=== PATIENT | male | born 1970 | race African-American/Black ===

== ENCOUNTER 2016-11-08 09:34 | Inpatient (IN) | payer BC ==
[~2016-11-08] VITALS: Ht 188 cm; Wt 105.2 kg
[2016-11-08] MEDS ORDERED: IV NORMAL SALINE 1000ML BAG 1,000 ML IV SCH (09:39)
--- NOTE | 2016-11-08 09:50 | PHYS DOC ---
Adult General Chief Complaint Chief Complaint: SYNCOPE HPI HPI Patient is a 45 year old -[place]olan Ang[place] male who presents with syncopal episode. 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 He states he's been working itself externally hard and when he left because he felt lightheaded and had some shortness of breath the next thing he knew he was picking himself off the floor. He currently denies any fevers chills nausea vomiting or shortness of breath. He does complain about left elbow and knee pain. He does smoke cigarettes and has no other past medical history. Review of Systems Review of Systems Constitutional: Denies fever or chills [] Eyes: Denies change in visual acuity, redness, or eye pain [] HENT: Denies nasal congestion or sore throat [] Respiratory: Denies cough or shortness of breath [] Cardiovascular: No additional information not addressed in HPI [] GI: Denies abdominal pain, nausea, vomiting, bloody stools or diarrhea [] : Denies dysuria or hematuria [] Musculoskeletal: Positive for left knee and left elbow pain Integument: Denies rash or skin lesions [] Neurologic: Denies headache, focal weakness or sensory changes [] Endocrine: Denies polyuria or polydipsia [] Current Medications Current Medications Current Medications Medications (Trade) Dose Ordered Sig/Nadeem Start Time Stop Time Status Last Admin Dose Admin Info (Do NOT chart on this entry -- for MONITORING) 1 each PRN DAILY PRN 11/08/16 11:00 11/10/16 10:59 Iohexol (Omnipaque 300 Mg/ml) 75 ml 1X ONCE 11/08/16 11:00 11/08/16 11:01 DC 11/08/16 11:06 75 ML Morphine Sulfate 4 mg 1X ONCE 11/08/16 11:00 11/08/16 11:01 DC 11/08/16 11:15 4 MG Sodium Chloride 1,000 ml @ 1,000 mls/hr Q1H 11/08/16 09:39 11/08/16 10:38 DC 11/08/16 10:14 1,000 MLS/HR Allergies Allergies Allergies Coded Allergies Type Severity Reaction Last Updated Verified No Known Drug Allergies 11/08/16 No Physical Exam Physical Exam Constitutional: Well developed, well nourished, no acute distress, non-toxic appearance. [] HENT: Normocephalic, atraumatic, bilateral external ears normal, oropharynx moist, no oral exudates, nose normal. [] Eyes: PERRLA, EOMI, conjunctiva normal, no discharge. [] Neck: Normal range of motion, no tenderness, supple, no stridor. [] Cardiovascular:Heart rate regular rhythm, no murmur [] Lungs & Thorax: Bilateral breath sounds clear to auscultation [] Abdomen: Bowel sounds normal, soft, no tenderness, no masses, no pulsatile masses. [] Skin: Warm, dry, no erythema, no rash. [] Back: No tenderness, no CVA tenderness. [] Extremities: Mild tenderness palpation of the left knee and left elbow, no obvious deformities noted, range of motion intact, no cyanosis, no clubbing, ROM intact, no edema. [] Neurologic: Alert and oriented X 3, normal motor function, normal sensory function, no focal deficits noted. [] Psychologic: Affect normal, judgement normal, mood normal. [] Current Patient Data Vital Signs Vital Signs Date Time Temp Pulse Resp B/P (MAP) Pulse Ox O2 Delivery O2 Flow Rate FiO2 11/08/16 11:15 16 100 Room Air 11/08/16 09:35 98.3 60 158/96 (116) 98.3 Lab Values Laboratory Tests Test 11/08/16 09:45 11/08/16 10:36 White Blood Count 2.9 x10^3/uL (4.0-11.0) L Red Blood Count 4.52 x10^6/uL (4.30-5.70) Hemoglobin 13.8 g/dL (13.0-17.5) Hematocrit 40.0 % (39.0-53.0) Mean Corpuscular Volume 88 fL (79-100) Mean Corpuscular Hemoglobin 31 pg (25-35) Mean Corpuscular Hemoglobin Concent 35 g/dL (31-37) Red Cell Distribution Width 13.8 % (11.5-14.5) Platelet Count 170 x10^3/uL (140-400) Neutrophils (%) (Auto) 42 % (31-73) Lymphocytes (%) (Auto) 43 % (24-48) Monocytes (%) (Auto) 10 % (0-9) H Eosinophils (%) (Auto) 5 % (0-3) H Basophils (%) (Auto) 1 % (0-3) Neutrophils # (Auto) 1.2 x10^3uL (1.8-7.7) L Lymphocytes # (Auto) 1.2 x10^3/uL (1.0-4.8) Monocytes # (Auto) 0.3 x10^3/uL (0.0-1.1) Eosinophils # (Auto) 0.1 x10^3/uL (0.0-0.7) Basophils # (Auto) 0.0 x10^3/uL (0.0-0.2) Prothrombin Time 12.5 SEC (11.7-14.0) Prothrombin Time INR 1.0 (0.8-1.1) D-Dimer (Yoko) 0.61 ug/mlFEU (0.00-0.50) H Sodium Level 140 mmol/L (136-145) Potassium Level 4.0 mmol/L (3.5-5.1) Chloride Level 107 mmol/L (98-107) Carbon Dioxide Level 27 mmol/L (21-32) Anion Gap 6 (6-14) Blood Urea Nitrogen 11 mg/dL (8-26) Creatinine 1.0 mg/dL (0.7-1.3) Estimated GFR (Cockcroft-Gault) 80.8 Glucose Level 98 mg/dL (70-99) Calcium Level 9.3 mg/dL (8.5-10.1) Magnesium Level 2.1 mg/dL (1.8-2.4) Total Bilirubin 0.4 mg/dL (0.2-1.0) Direct Bilirubin 0.1 mg/dL (0.0-0.2) Aspartate Amino Transferase (AST) 24 U/L (15-37) Alanine Aminotransferase (ALT) 34 U/L (16-63) Alkaline Phosphatase 77 U/L (46-116) Creatine Kinase 703 U/L (39-308) H Creatine Kinase MB (Mass) 1.9 ng/mL (0.0-3.6) Creatine Kinase MB Relative Index 0.3 % (0-4) Troponin I Quantitative < 0.017 ng/mL (0.000-0.055) [id number]-[id number]-Type Natriuretic Peptide 108 pg/mL (0-124) Total Protein 7.7 g/dL (6.4-8.2) Albumin 3.9 g/dL (3.4-5.0) Lipase 100 U/L (73-393) Thyroid Stimulating Hormone (TSH) 0.596 uIU/mL (0.358-3.74) Urine Collection Type Unknown Urine Color Yellow Urine Clarity Clear Urine pH 7.5 Urine Specific [place] 1.015 Urine Protein Negative mg/dL (NEG-TRACE) Urine Glucose (UA) Negative mg/dL (NEG) Urine Ketones (Stick) Negative mg/dL (NEG) Urine Blood Negative (NEG) Urine Nitrite Negative (NEG) Urine Bilirubin Negative (NEG) Urine Urobilinogen Dipstick 1.0 mg/dL (0.2 mg/dL) Urine Leukocyte Esterase Negative (NEG) Urine RBC 0 /HPF (0-2) Urine WBC 0 /HPF (0-4) Urine Squamous Epithelial Cells Occ /LPF Urine Bacteria 0 /HPF (0-FEW) Urine Opiates Screen Neg (NEG) Urine Methadone Screen Neg (NEG) Urine Barbiturates Neg (NEG) Urine Phencyclidine Screen Neg (NEG) Urine Amphetamine/Methamphetamine Neg (NEG) Urine Benzodiazepines Screen Neg (NEG) Urine Cocaine Screen Neg (NEG) Urine Cannabinoids Screen Neg (NEG) Urine Ethyl Alcohol Neg (NEG) Laboratory Tests 11/08/16 09:45 Laboratory Tests 11/08/16 09:45 EKG EKG EKG shows sinus rhythm with rate of [address] elevations, T-wave inversion noted in lead 3, normal axis, QTC 4 and 23 ms, as interpreted by me. Radiology/Procedures Radiology/Procedures [facility] [address] [place] [address] IMAGING REPORT Signed PATIENT: ADRIEN DE LOS SANTOS ACCOUNT: [id number] : 1970 LOCATION: ER AGE: 45 SEX: M EXAM STATUS: PRE ER ORD. PHYSICIAN: MARGARET HOWELL MD REASON: syncope with fall, pain to left elbow and knee PROCEDURE: KNEE LEFT 4V Indication: Syncope and left knee injury. Time of exam 10 0 4:00 AM 4 views of the left knee demonstrate medial and patellofemoral compartmental degenerative change with joint space narrowing and marginal spurring. No fractures are identified. There is no joint effusion. Impression: Degenerative changes. No acute bony abnormality is detected. DICTATED and SIGNED BY: JUHI CARRENO MD DATE: 11/08/16 1010 CC: MARGARET HOWELL MD ~ [address] [address] IMAGING REPORT Signed PATIENT: ADRIEN DE LOS SANTOS ACCOUNT: [id number] : 1970 LOCATION: ER AGE: 45 SEX: M EXAM STATUS: PRE ER ORD. PHYSICIAN: MARGARET HOWELL MD REASON: syncope with fall, pain to left elbow and knee PROCEDURE: ELBOW LEFT 3V Indication: Syncope and left elbow injury and pain. Time of exam 10:04 AM 3 views of the left elbow were obtained. The alignment is normal. No fracture, dislocation or effusion is detected. Impression: No acute bony abnormality is detected. DICTATED and SIGNED BY: JUHI CARRENO MD DATE: 11/08/16 1011 CC: MARGARET HOWELL MD ~ [id number] [place], [place] [id number] IMAGING REPORT Signed PATIENT: ADRIEN DE LOS SANTOS ACCOUNT: [id number] : 1970 LOCATION: ER AGE: 45 SEX: M EXAM STATUS: PRE ER ORD. PHYSICIAN: MARGARET HOWELL MD REASON: syncope with fall, pain to left elbow and knee PROCEDURE: PORTABLE CHEST 1V Indication: Syncope. Time of exam 10:05 AM FINDINGS: The heart size is normal. The lungs are clear. No pleural effusion or pneumothorax is identified. The pulmonary vascularity is normal. IMPRESSION: No acute abnormality detected. DICTATED and SIGNED BY: JUHI CARRENO MD DATE: 11/08/16 1012 CC: MARGARET HOWELL MD ~ [id number] [place] [address] IMAGING REPORT Signed PATIENT: ADRIEN DE LOS SANTOS ACCOUNT: [id number] : 1970 LOCATION: ER AGE: 45 SEX: M EXAM STATUS: REG ER ORD. PHYSICIAN: MARGARET HOWELL MD REASON: syncope PROCEDURE: CT ANGIOGRAPHY CHEST Indication: Syncope and shortness of air. Axial imaging through the chest was performed after the administration of intravenous contrast and utilizing the CT angiography protocol. Multiplanar, 3-D and MIP reformations were also performed. Evaluation of the pulmonary arterial system is without evidence of thromboembolism. No filling defects are identified. The aorta is normal caliber. No pericardial or pleural fluid is identified. No pulmonary infiltrates, nodules or masses are seen. Upper abdomen demonstrates several low densities within the liver, too small to characterize but likely cysts. Impression: No evidence of pulmonary embolism. PQRS Compliance Statement: One or more of the following individualized dose reduction techniques were utilized for this examination: 1. Automated exposure control 2. Adjustment of the mA and/or kV according to patient size 3. Use of iterative reconstruction technique DICTATED and SIGNED BY: JUHI CARRENO MD DATE: 11/08/16 1122 CC: MARGARET HOWELL MD; JAQUAN RUTLEDGE DO ~ Impressions: Syncopal episode Bradycardia Left knee pain Course & Med Decision Making Course & Med Decision Making Pertinent Labs and Imaging studies reviewed. (See chart for details) Labs show elevated d-dimer with CT Angio is negative. He is bradycardic and this could be the reason for his symptoms. We'll admit with cardiology consultation. Interim orders have been written. Did speak with Dr. corral regarding his labs, physical exam and findings. Dragon Disclaimer Dragon Disclaimer This electronic medical record was generated, in whole or in part, using a voice recognition dictation system. Departure Departure Impression: Primary Impression: Syncope Disposition: ADMITTED INPATIENT Admitting Physician: Joan Corral Condition: STABLE Problem Qualifiers Primary Impression: Syncope Encounter type: initial encounter MARGARET HOWELL MD Nov 08, 2016 09:50
--- NOTE | 2016-11-08 10:13 | RAD ---
Indication: Syncope and left knee injury. Time of exam 10 0 4:00 AM 4 views of the left knee demonstrate medial and patellofemoral compartmental degenerative change with joint space narrowing and marginal spurring. No fractures are identified. There is no joint effusion. Impression: Degenerative changes. No acute bony abnormality is detected.
--- NOTE | 2016-11-08 10:14 | RAD ---
Indication: Syncope and left elbow injury and pain. Time of exam 10:04 AM 3 views of the left elbow were obtained. The alignment is normal. No fracture, dislocation or effusion is detected. Impression: No acute bony abnormality is detected.
--- NOTE | 2016-11-08 10:14 | RAD ---
Indication: Syncope. Time of exam 10:05 AM FINDINGS: The heart size is normal. The lungs are clear. No pleural effusion or pneumothorax is identified. The pulmonary vascularity is normal. IMPRESSION: No acute abnormality detected.
[2016-11-08 10:19] LABS: CALCIUM 9.3 mg/dL (8.5-10.1); GFR 80.8
[2016-11-08 10:27] LABS: ALBUMIN 3.9 g/dL (3.4-5.0); BASO % 1 % (0-3); DIRECT BILIRUBIN 0.1 mg/dL (0.0-0.2); EOS % 5 % (0-3); HEMOGLOBIN 13.8 g/dL (13.0-17.5); LYMPH # 1.2 x10^3/uL (1.0-4.8); LYMPH % 43 % (24-48); MAGNESIUM 2.1 mg/dL (1.8-2.4); MEAN CORPUSCULAR HEMOGLOBIN 31 pg (25-35); MEAN CORPUSCULAR HGB CONC 35 g/dL (31-37); MEAN CORPUSCULAR VOLUME 88 fL (79-100); MONO % 10 % (0-9); NEUT % 42 % (31-73); PLATELET COUNT 170 x10^3/uL (140-400); RED BLOOD COUNT 4.52 x10^6/uL (4.30-5.70); RED CELL DISTRIBUTION WIDTH 13.8 % (11.5-14.5); TOTAL BILIRUBIN 0.4 mg/dL (0.2-1.0); TOTAL PROTEIN 7.7 g/dL (6.4-8.2); WHITE BLOOD COUNT 2.9 x10^3/uL (4.0-11.0)
[2016-11-08 10:32] LABS: PROTHROMBIN TIME PATIENT 12.5 SEC (11.7-14.0)
[2016-11-08 10:35] LABS: CKMB MASS 1.9 ng/mL (0.0-3.6)
--- NOTE | 2016-11-08 10:46 | ACF ---
Admission Forms Criteria SYNCOPE Clinical Indications for Admission to Inpatient Care ( Place 'X' for any and all applicable criteria): Admission is indicated for syncope and ANY ONE of the following (1)(2)(3)(4)(5) (6)(7) : [X]I. Inpatient admission required rather than observation care (Also use Syncope: Observation Care Criteria as appropriate) because of ANY ONE of the following: [ ]a) Hemodynamic instability that is severe or persistent [ ]b) Cardiac arrhythmias of immediate concern identified or strongly suspected (eg, needs electrophysiologic study) [ ]c) Acute coronary syndrome identified (Also use Myocardial Infarction or Angina Criteria form ) [ ]d) Structural cardiac disorder (eg, aortic stenosis) suspected as cause that requires immediate correction [ ]e) Respiratory symptoms (eg, dyspnea, tachypnea) that are severe or persistent [ ]f) Neurologic signs or symptoms that are severe or persistent ( eg, stroke, seizures, altered mental status) [ ]g) Severe electrolyte abnormalities requiring inpatient care [ ]h) Supplemental oxygen or respiratory treatment for over 24 hrs that are performable only in acute inpatient setting [ ]i) IV fluid to replace significant ongoing (eg, for over 24 hrs ) losses (>3 L/m2 per day) [ ]j) Continuous intravenous infusion of anticoagulation, platelet inhibitor, vasoactive, or antiarrhythmic medication(15)(16) [ ]k) Pulmonary artery catheter monitoring [ ]l) Temporary pacemaker placement(17) [ ]m) Emergent cardioversion(18) [X]n) Other conditions, treatment or monitoring requiring inpatient admission [ ]II. Suspicion of imminently dangerous cause (eg, rare causes like pericardial tamponade, pulmonary embolism) [ ]III. Syncope causing severe injury requiring hospitalization Extended stay beyond goal length of stay may be needed for(28) [ ]a) Dangerous arrhythmia(15)(23)(27)(29) [ ]b) Myocardial ischemia [ ]c) Seizure disorder [ ]d) Syncope-related injuries The original [employer] content created by [employer] has been revised. The portions of the content which have been revised are identified through the use of italic text or in bold, and [facility] [employer] has neither reviewed nor approved the modified material. All other unmodified content is copyright [employer]. Please see references footnoted in the original [facility] edition 2016 Admission Criteria Met?: Yes LEA CHAVEZ. Nov 08, 2016 10:46
[2016-11-08 10:50] LABS: BILIRUBIN,URINE NEGATIVE (NEG); GLUCOSE,URINE NEGATIVE (NEG); NITRITE,URINE NEGATIVE (NEG); PH,URINE 7.5; PROTEIN,URINE NEGATIVE (NEG-TRACE)
[2016-11-08 10:52] LABS: BARBITURATES NEG (NEG); BENZODIAZEPINES NEG (NEG); CANNABINOIDS NEG (NEG); COCAINE NEG (NEG); METHADONE NEG (NEG); OPIATES NEG (NEG); PHENCYCLIDINE NEG (NEG)
[2016-11-08] MEDS ORDERED: MORPHINE SULFATE 4 MG/ML DISP.SYRIN. IV ONE (11:00)
[2016-11-08] MEDS ORDERED: IOHEXOL 300 MG/ML 75 ML VIAL IV ONE (11:00)
[2016-11-08] MEDS ORDERED: CONTRAST GIVEN MC PRN (11:00)
--- NOTE | 2016-11-08 11:02 | EKG ---
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 Electronically Signed On 11-08-2016 23:12:58 CDT by Yunior Sanchez
--- NOTE | 2016-11-08 11:27 | RAD ---
Indication: Syncope and shortness of air. Axial imaging through the chest was performed after the administration of intravenous contrast and utilizing the CT angiography protocol. Multiplanar, 3-D and MIP reformations were also performed. Evaluation of the pulmonary arterial system is without evidence of thromboembolism. No filling defects are identified. The aorta is normal caliber. No pericardial or pleural fluid is identified. No pulmonary infiltrates, nodules or masses are seen. Upper abdomen demonstrates several low densities within the liver, too small to characterize but likely cysts. Impression: No evidence of pulmonary embolism. PQRS Compliance Statement: One or more of the following individualized dose reduction techniques were utilized for this examination: 1. Automated exposure control 2. Adjustment of the mA and/or kV according to patient size 3. Use of iterative reconstruction technique
[2016-11-08 11:33] LABS: BACTERIA,URINE 0 /HPF (0-FEW); RBC,URINE 0 /HPF (0-2); SQUAMOUS EPITHELIAL CELL,UR OCC /LPF; WBC,URINE 0 /HPF (0-4)
[2016-11-08] MEDS ORDERED: MORPHINE SULFATE 2 MG/ML DISP.SYRIN. IV PRN (11:45)
[2016-11-08] MEDS ORDERED: ONDANSETRON PF 4 MG/2 ML VIAL. IV PRN (11:45)
--- NOTE | 2016-11-08 12:07 | PDOC2 ---
CARDIAC CONSULT DATE OF CONSULT Date of Consult DATE: 11/08/16 TIME: 12:03 REASON FOR CONSULT Reason for Consult: syncope REFERRING PHYSICIAN Referring Physician: Dr. Arroyo SOURCE Source: Chart review, Patient HISTORY OF PRESENT ILLNESS HISTORY OF PRESENT ILLNESS This is a 45 yo male who presented secondary to a syncopal episode. Patient reports he was at work this morning when episode occurred. 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 Was walking to get supplies, suddenly felt tired and lightheaded. Next thing he knew he was on the floor. Landed on left knee and elbow. [place]y slightly SOA when he "came to." Denies any chest pain, palpitations, or diaphoresis. No prior history of heart disease or cardiac workup. EKG shows SB rate 53 with t-wave inversion of septal leads. Initial trop negative. D-dimer mildly elevated; CTA chest negative for PE. PAST MEDICAL HISTORY Cardiovascular: Hyperlipidemia Pulmonary: No pertinent hx GI: No pertinent hx Heme/Onc: No pertinent hx Hepatobiliary: No pertinent hx Psych: No pertinent hx Rheumatologic: No pertinent hx Infectious disease: No pertinent hx ENT: No pertinent hx Renal/: No pertinent hx Endocrine: No pertinent hx Dermatology: No pertinent hx PAST SURGICAL HISTORY Past Surgical History: Other (left knee sx) FAMILY HISTORY Family History: Coronary Artery Disease (father at age 56), Diabetes (mother ) , Hypertension SOCIAL HISTORY Smoke: 1 pack per day ALCOHOL: social Drugs: None Lives: with Family CURRENT MEDICATIONS CURRENT MEDICATIONS Current Medications Medications (Trade) Dose Ordered Sig/Nadeem Route PRN Reason Start Time Stop Time Status Last Admin Dose Admin Sodium Chloride 1,000 ml @ 1,000 mls/hr Q1H IV 11/08/16 09:39 11/08/16 10:38 DC 11/08/16 10:14 Morphine Sulfate 4 mg 1X ONCE IV 11/08/16 11:00 11/08/16 11:01 DC 11/08/16 11:15 Iohexol (Omnipaque 300 Mg/ml) 75 ml 1X ONCE IV 11/08/16 11:00 11/08/16 11:01 DC 11/08/16 11:06 ALLERGIES ALLERGIES: Coded Allergies: No Known Drug Allergies (Unverified , 11/08/16) ROS Review of System 14 point ROS conducted with pertinent positives noted above in HPI PHYSICAL EXAM General: Alert, Oriented X3, Cooperative, No acute distress HEENT: Atraumatic, Mucous membr. moist/pink Lungs: Clear to auscultation, Normal air movement Heart: Normal S1, Normal S2, Other (tele: SB rate 55) Extremities: No cyanosis, No edema, Normal pulses Skin: No significant lesion Neuro: Normal speech, Sensation intact Psych/Mental Status: Mental status NL, Mood NL MUSCULOSKELETAL: Osteoarthritic changes both hands VITALS VITALS Vital Signs Date Time Temp Pulse Resp B/P (MAP) Pulse Ox O2 Delivery O2 Flow Rate FiO2 11/08/16 11:15 16 100 Room Air 11/08/16 09:35 98.3 60 158/96 (116) 98.3 LABS Lab: Laboratory Tests Test 11/08/16 09:45 11/08/16 10:36 White Blood Count 2.9 x10^3/uL (4.0-11.0) Red Blood Count 4.52 x10^6/uL (4.30-5.70) Hemoglobin 13.8 g/dL (13.0-17.5) Hematocrit 40.0 % (39.0-53.0) Mean Corpuscular Volume 88 fL (79-100) Mean Corpuscular Hemoglobin 31 pg (25-35) Mean Corpuscular Hemoglobin Concent 35 g/dL (31-37) Red Cell Distribution Width 13.8 % (11.5-14.5) Platelet Count 170 x10^3/uL (140-400) Neutrophils (%) (Auto) 42 % (31-73) Lymphocytes (%) (Auto) 43 % (24-48) Monocytes (%) (Auto) 10 % (0-9) Eosinophils (%) (Auto) 5 % (0-3) Basophils (%) (Auto) 1 % (0-3) Neutrophils # (Auto) 1.2 x10^3uL (1.8-7.7) Lymphocytes # (Auto) 1.2 x10^3/uL (1.0-4.8) Monocytes # (Auto) 0.3 x10^3/uL (0.0-1.1) Eosinophils # (Auto) 0.1 x10^3/uL (0.0-0.7) Basophils # (Auto) 0.0 x10^3/uL (0.0-0.2) Prothrombin Time 12.5 SEC (11.7-14.0) Prothromb Time International Ratio 1.0 (0.8-1.1) D-Dimer (Yoko) 0.61 ug/mlFEU (0.00-0.50) Sodium Level 140 mmol/L (136-145) Potassium Level 4.0 mmol/L (3.5-5.1) Chloride Level 107 mmol/L (98-107) Carbon Dioxide Level 27 mmol/L (21-32) Anion Gap 6 (6-14) Blood Urea Nitrogen 11 mg/dL (8-26) Creatinine 1.0 mg/dL (0.7-1.3) Estimated GFR (Cockcroft-Gault) 80.8 Glucose Level 98 mg/dL (70-99) Calcium Level 9.3 mg/dL (8.5-10.1) Magnesium Level 2.1 mg/dL (1.8-2.4) Total Bilirubin 0.4 mg/dL (0.2-1.0) Direct Bilirubin 0.1 mg/dL (0.0-0.2) Aspartate Amino Transf (AST/SGOT) 24 U/L (15-37) Alanine Aminotransferase (ALT/SGPT) 34 U/L (16-63) Alkaline Phosphatase 77 U/L (46-116) Creatine Kinase 703 U/L (39-308) Creatine Kinase MB (Mass) 1.9 ng/mL (0.0-3.6) Creatine Kinase MB Relative Index 0.3 % (0-4) Troponin I Quantitative < 0.017 ng/mL (0.000-0.055) TL-Yiu-C-Type Natriuretic Peptide 108 pg/mL (0-124) Total Protein 7.7 g/dL (6.4-8.2) Albumin 3.9 g/dL (3.4-5.0) Lipase 100 U/L (73-393) Thyroid Stimulating Hormone (TSH) 0.596 uIU/mL (0.358-3.74) Urine Collection Type Unknown Urine Color Yellow Urine Clarity Clear Urine pH 7.5 Urine Specific [place] 1.015 Urine Protein Negative mg/dL (NEG-TRACE) Urine Glucose (UA) Negative mg/dL (NEG) Urine Ketones (Stick) Negative mg/dL (NEG) Urine Blood Negative (NEG) Urine Nitrite Negative (NEG) Urine Bilirubin Negative (NEG) Urine Urobilinogen Dipstick 1.0 mg/dL (0.2 mg/dL) Urine Leukocyte Esterase Negative (NEG) Urine RBC 0 /HPF (0-2) Urine WBC 0 /HPF (0-4) Urine Squamous Epithelial Cells Occ /LPF Urine Bacteria 0 /HPF (0-FEW) Urine Opiates Screen Neg (NEG) Urine Methadone Screen Neg (NEG) Urine Barbiturates Neg (NEG) Urine Phencyclidine Screen Neg (NEG) Urine Amphetamine/Methamphetamine Neg (NEG) Urine Benzodiazepines Screen Neg (NEG) Urine Cocaine Screen Neg (NEG) Urine Cannabinoids Screen Neg (NEG) Urine Ethyl Alcohol Neg (NEG) ASSESSMENT/PLAN ASSESSMENT/PLAN 1. Syncope 2. Sinus bradycardia 3. Hyperlipidemia 4. Hypertension 5. Tobaccoism Recommendations Check lipids. Trend CE. Avoid AV homer blocking agents. Obtain echo to assess LV function/rule out cardiac anomalies Monitor telemetry to note presence of significant bradycardia/pauses. If none noted; plan for outpatient event monitor. Consider outpatient ischemic workup given risk factors and and abnormal EKG Discussed/encouraged smoking cessation Further recommendations pending diagnostics Problems: ROSA TOVAR APRN Nov 08, 2016 12:07
[2016-11-08 13:13] VITALS: BP 170/96
--- NOTE | 2016-11-08 13:33 | PDOC1 ---
History and Physical Date of Admission Date of Admission DATE: 11/08/16 TIME: 13:30 Identification/Chief Complaint Chief Complaint passed out Problems: Source Source: Chart review, Patient History of Present Illness History of Present Illness Mr. Marie is a 45 year old male admit from ER s/p syncopal episode. He fell and had (Possible? 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 he had a prodrome to the fall, lightheaded and dyspneic before the fall, He currently denies any fevers chills nausea vomiting or shortness of breath. He does complain about left elbow and knee pain. He does smoke cigarettes and has no other past medical history. Past Medical History Cardiovascular: Hyperlipidemia Pulmonary: No pertinent hx GI: No pertinent hx Heme/Onc: No pertinent hx Hepatobiliary: No pertinent hx Psych: No pertinent hx Rheumatologic: No pertinent hx Infectious disease: No pertinent hx ENT: No pertinent hx Renal/: No pertinent hx Endocrine: No pertinent hx Dermatology: No pertinent hx Past Surgical History Past Surgical History: Other (left knee sx) Family History Family History: Coronary Artery Disease (father at age 56), Diabetes (mother ) , Hypertension Social History Smoke: 1 pack per day ALCOHOL: social Drugs: None Current Problem List Problem List Problems Medical Problems: (1) Syncope Status: Acute Problems: Current Medications Current Medications Current Medications Sodium Chloride 1,000 ml @ 1,000 mls/hr Q1H IV Last administered on 11/08/16 10:14; Start 11/08/16 at 09:39; Stop 11/08/16 at 10:38; Status DC Morphine Sulfate 4 mg 1X ONCE IV Last administered on 11/08/16 11:15; Start 11/08/16 at 11:00; Stop 11/08/16 at 11:01; Status DC Iohexol (Omnipaque 300 Mg/ml) 75 ml 1X ONCE IV Last administered on 11/08/16 11:06; Start 11/08/16 at 11:00; Stop 11/08/16 at 11:01; Status DC Info (Do NOT chart on this entry -- for MONITORING) 1 each PRN DAILY PRN MC SEE COMMENTS; Start 11/08/16 at 11:00; Stop 11/10/16 at 10:59 Ondansetron HCl (Zofran) 4 mg PRN Q8HRS PRN IV NAUSEA/VOMITING; Start 11/08/16 at 11:45; Stop 11/09/16 at 11:44 Morphine Sulfate 2 mg PRN Q2HR PRN IV PAIN; Start 11/08/16 at 11:45; Stop 11/09 at 11:44 Lisinopril (Prinivil) 5 mg DAILY PO ; Start 11/08/16 at 13:30 Allergies Allergies: Coded Allergies: No Known Drug Allergies (Unverified , 11/08/16) ROS General: No: Chills, Night Sweats, Fatigue, Malaise, Appetite, Other PSYCHOLOGICAL ROS: No: Anxiety, Behavioral Disorder, Concentration difficultie , Decreased libido, Depression, Disorientation, Hallucinations, Hostility, Irritablity, Memory difficulties, Mood Swings, Obsessive thoughts, Physical abuse, Sexual abuse, Sleep disturbances, Suicidal ideation, Other Eyes: No Blurry vision, No Decreased vision, No Double vision, No Dry eyes, No Excessive tearing, No Eye Pain, No Itchy Eyes, No Loss of vision, No Photophobia , No Scotomata, No Uses contacts, No Uses glasses, No Other HEENT: YES: Heacaches, No: Visual Changes, Hearing change, Nasal congestion, Nasal discharge, Oral lesions, Sinus pain, Sore Throat, Epistaxis, Sneezing, Snoring, Tinnitus, Vertigo, Vocal changes, Other Respiratory: YES: SOB with excertion, Other (diaphoresis), No: Cough, Hemoptysis, Orthopnea, Pleuritic Pain, Shortness of breath, Sputum Changes, Stridor, Tachypnea, Wheezing Cardiovascular: No Chest Pain, No Palpitations, No Orthopnea, No Paroxysmal Noc. Dyspnea, No Edema, No Lt Headedness, No Other Gastrointestinal: Yes Nausea, No Vomiting, No Abdominal Pain, No Diarrhea, No Constipation, No Melena, No Hematochezia, No Other Genitourinary: No Dysuria, No Frequency, No Incontinence, No Hematuria, No Retention, No Discharge, No Urgency, No Pain, No Flank Pain, No Other, No , No , No , No , No , No , No Musculoskeletal: No Gait Disturbance, No Joint Pain, No Joint Stiffness, No Joint Swelling, No Muscle Pain, No Muscular Weakness, No Pain In:, No Swelling In:, No Other Neurological: No Behavorial Changes, No Bowel/Bladder ControlChng, No Confusion , No Dizziness, No Gait Disturbance, No Headaches, No Impaired Coord/balance, No Memory Loss, No Numbness/Tingling, No Seizures, No Speech Problems, No Tremors, No Visual Changes, No Weakness, No Other Skin: No Dry Skin, No Eczema, No Hair Changes, No Lumps, No Mole Changes, No Mottling, No Nail Changes, No Pruritus, No Rash, No Skin Lesion Changes, No Other, No Acne Physical Exam General: Alert, Oriented X3, Cooperative HEENT: Atraumatic, PERRLA Lungs: Clear to auscultation Heart: no gallops, no murmurs Abdomen: Normal bowel sounds, Soft Extremities: No clubbing, No cyanosis Skin: No breakdown Neuro: Normal gait, Normal speech, Normal tone, Sensation intact Psych/Mental Status: Mental status NL, Mood NL Vitals Vitals Vital Signs Date Time Temp Pulse Resp B/P (MAP) Pulse Ox O2 Delivery O2 Flow Rate FiO2 11/08/16 13:13 98.6 51 18 170/96 (120) 99 Room Air 98.6 Labs Labs Laboratory Tests Test 11/08/16 09:45 11/08/16 10:36 White Blood Count 2.9 x10^3/uL (4.0-11.0) Red Blood Count 4.52 x10^6/uL (4.30-5.70) Hemoglobin 13.8 g/dL (13.0-17.5) Hematocrit 40.0 % (39.0-53.0) Mean Corpuscular Volume 88 fL (79-100) Mean Corpuscular Hemoglobin 31 pg (25-35) Mean Corpuscular Hemoglobin Concent 35 g/dL (31-37) Red Cell Distribution Width 13.8 % (11.5-14.5) Platelet Count 170 x10^3/uL (140-400) Neutrophils (%) (Auto) 42 % (31-73) Lymphocytes (%) (Auto) 43 % (24-48) Monocytes (%) (Auto) 10 % (0-9) Eosinophils (%) (Auto) 5 % (0-3) Basophils (%) (Auto) 1 % (0-3) Neutrophils # (Auto) 1.2 x10^3uL (1.8-7.7) Lymphocytes # (Auto) 1.2 x10^3/uL (1.0-4.8) Monocytes # (Auto) 0.3 x10^3/uL (0.0-1.1) Eosinophils # (Auto) 0.1 x10^3/uL (0.0-0.7) Basophils # (Auto) 0.0 x10^3/uL (0.0-0.2) Prothrombin Time 12.5 SEC (11.7-14.0) Prothromb Time International Ratio 1.0 (0.8-1.1) D-Dimer (Yoko) 0.61 ug/mlFEU (0.00-0.50) Sodium Level 140 mmol/L (136-145) Potassium Level 4.0 mmol/L (3.5-5.1) Chloride Level 107 mmol/L (98-107) Carbon Dioxide Level 27 mmol/L (21-32) Anion Gap 6 (6-14) Blood Urea Nitrogen 11 mg/dL (8-26) Creatinine 1.0 mg/dL (0.7-1.3) Estimated GFR (Cockcroft-Gault) 80.8 Glucose Level 98 mg/dL (70-99) Calcium Level 9.3 mg/dL (8.5-10.1) Magnesium Level 2.1 mg/dL (1.8-2.4) Total Bilirubin 0.4 mg/dL (0.2-1.0) Direct Bilirubin 0.1 mg/dL (0.0-0.2) Aspartate Amino Transf (AST/SGOT) 24 U/L (15-37) Alanine Aminotransferase (ALT/SGPT) 34 U/L (16-63) Alkaline Phosphatase 77 U/L (46-116) Creatine Kinase 703 U/L (39-308) Creatine Kinase MB (Mass) 1.9 ng/mL (0.0-3.6) Creatine Kinase MB Relative Index 0.3 % (0-4) Troponin I Quantitative < 0.017 ng/mL (0.000-0.055) DC-Tbu-J-Type Natriuretic Peptide 108 pg/mL (0-124) Total Protein 7.7 g/dL (6.4-8.2) Albumin 3.9 g/dL (3.4-5.0) Lipase 100 U/L (73-393) Thyroid Stimulating Hormone (TSH) 0.596 uIU/mL (0.358-3.74) Urine Collection Type Unknown Urine Color Yellow Urine Clarity Clear Urine pH 7.5 Urine Specific [place] 1.015 Urine Protein Negative mg/dL (NEG-TRACE) Urine Glucose (UA) Negative mg/dL (NEG) Urine Ketones (Stick) Negative mg/dL (NEG) Urine Blood Negative (NEG) Urine Nitrite Negative (NEG) Urine Bilirubin Negative (NEG) Urine Urobilinogen Dipstick 1.0 mg/dL (0.2 mg/dL) Urine Leukocyte Esterase Negative (NEG) Urine RBC 0 /HPF (0-2) Urine WBC 0 /HPF (0-4) Urine Squamous Epithelial Cells Occ /LPF Urine Bacteria 0 /HPF (0-FEW) Urine Opiates Screen Neg (NEG) Urine Methadone Screen Neg (NEG) Urine Barbiturates Neg (NEG) Urine Phencyclidine Screen Neg (NEG) Urine Amphetamine/Methamphetamine Neg (NEG) Urine Benzodiazepines Screen Neg (NEG) Urine Cocaine Screen Neg (NEG) Urine Cannabinoids Screen Neg (NEG) Urine Ethyl Alcohol Neg (NEG) Laboratory Tests Test 11/08/16 09:45 11/08/16 10:36 White Blood Count 2.9 x10^3/uL (4.0-11.0) Red Blood Count 4.52 x10^6/uL (4.30-5.70) Hemoglobin 13.8 g/dL (13.0-17.5) Hematocrit 40.0 % (39.0-53.0) Mean Corpuscular Volume 88 fL (79-100) Mean Corpuscular Hemoglobin 31 pg (25-35) Mean Corpuscular Hemoglobin Concent 35 g/dL (31-37) Red Cell Distribution Width 13.8 % (11.5-14.5) Platelet Count 170 x10^3/uL (140-400) Neutrophils (%) (Auto) 42 % (31-73) Lymphocytes (%) (Auto) 43 % (24-48) Monocytes (%) (Auto) 10 % (0-9) Eosinophils (%) (Auto) 5 % (0-3) Basophils (%) (Auto) 1 % (0-3) Neutrophils # (Auto) 1.2 x10^3uL (1.8-7.7) Lymphocytes # (Auto) 1.2 x10^3/uL (1.0-4.8) Monocytes # (Auto) 0.3 x10^3/uL (0.0-1.1) Eosinophils # (Auto) 0.1 x10^3/uL (0.0-0.7) Basophils # (Auto) 0.0 x10^3/uL (0.0-0.2) Prothrombin Time 12.5 SEC (11.7-14.0) Prothromb Time International Ratio 1.0 (0.8-1.1) D-Dimer (Yoko) 0.61 ug/mlFEU (0.00-0.50) Sodium Level 140 mmol/L (136-145) Potassium Level 4.0 mmol/L (3.5-5.1) Chloride Level 107 mmol/L (98-107) Carbon Dioxide Level 27 mmol/L (21-32) Anion Gap 6 (6-14) Blood Urea Nitrogen 11 mg/dL (8-26) Creatinine 1.0 mg/dL (0.7-1.3) Estimated GFR (Cockcroft-Gault) 80.8 Glucose Level 98 mg/dL (70-99) Calcium Level 9.3 mg/dL (8.5-10.1) Magnesium Level 2.1 mg/dL (1.8-2.4) Total Bilirubin 0.4 mg/dL (0.2-1.0) Direct Bilirubin 0.1 mg/dL (0.0-0.2) Aspartate Amino Transf (AST/SGOT) 24 U/L (15-37) Alanine Aminotransferase (ALT/SGPT) 34 U/L (16-63) Alkaline Phosphatase 77 U/L (46-116) Creatine Kinase 703 U/L (39-308) Creatine Kinase MB (Mass) 1.9 ng/mL (0.0-3.6) Creatine Kinase MB Relative Index 0.3 % (0-4) Troponin I Quantitative < 0.017 ng/mL (0.000-0.055) GI-Inh-C-Type Natriuretic Peptide 108 pg/mL (0-124) Total Protein 7.7 g/dL (6.4-8.2) Albumin 3.9 g/dL (3.4-5.0) Lipase 100 U/L (73-393) Thyroid Stimulating Hormone (TSH) 0.596 uIU/mL (0.358-3.74) Urine Collection Type Unknown Urine Color Yellow Urine Clarity Clear Urine pH 7.5 Urine Specific [place] 1.015 Urine Protein Negative mg/dL (NEG-TRACE) Urine Glucose (UA) Negative mg/dL (NEG) Urine Ketones (Stick) Negative mg/dL (NEG) Urine Blood Negative (NEG) Urine Nitrite Negative (NEG) Urine Bilirubin Negative (NEG) Urine Urobilinogen Dipstick 1.0 mg/dL (0.2 mg/dL) Urine Leukocyte Esterase Negative (NEG) Urine RBC 0 /HPF (0-2) Urine WBC 0 /HPF (0-4) Urine Squamous Epithelial Cells Occ /LPF Urine Bacteria 0 /HPF (0-FEW) Urine Opiates Screen Neg (NEG) Urine Methadone Screen Neg (NEG) Urine Barbiturates Neg (NEG) Urine Phencyclidine Screen Neg (NEG) Urine Amphetamine/Methamphetamine Neg (NEG) Urine Benzodiazepines Screen Neg (NEG) Urine Cocaine Screen Neg (NEG) Urine Cannabinoids Screen Neg (NEG) Urine Ethyl Alcohol Neg (NEG) VTE Prophylaxis Ordered VTE Prophylaxis Devices: No VTE Pharmacological Prophylaxi: No Assessment/Plan Assessment/Plan syncope tele, echo, CV consult, may consider MPI dyspnea on exertion, unexpected diaphoresis on admit, CV consult tobaccoism, cessation discussed admit obs NIMISHA SUAREZ MD Nov 08, 2016 13:33
[2016-11-08] MEDS ORDERED: MORPHINE SULFATE 4 MG/ML DISP.SYRIN. IV PRN (13:45)
[2016-11-08] MEDS ORDERED: NICOTINE POLACRILEX 2MG GUM PACKAGE of 12. BC PRN (13:45)
[2016-11-08] MEDS: LISINOPRIL 5 MG TABLET. PO SCH (13:54)
[2016-11-08] MEDS: amLODIPine BESYLATE 2.5 MG TABLET PO SCH (13:55)
[2016-11-08 15:00] VITALS: BP 140/82
--- NOTE | 2016-11-08 15:25 | CARD ---
APPROVED REPORT EXAM: Two-dimensional and M-mode echocardiogram with Doppler and color Doppler. Other Information Quality : Average Rhythm : Bradycardia INDICATION Syncope 2D DIMENSIONS RVDd3.1 (2.9-3.5cm)Left Atrium(2D)3.5 (1.6-4.0cm) IVSd0.8 (0.7-1.1cm)Aortic Root(2D)3.0 (2.0-3.7cm) LVDd5.4 (3.9-5.9cm)LVOT Diameter2.2 (1.8-2.4cm) PWd0.8 (0.7-1.1cm)LVDs3.0 (2.5-4.0cm) FS (%) 24.5 %SV105.4 ml LVEF(%)55.3 (>50%) Aortic Valve AoV Peak Ricky.117.9cm/sAoV VTI25.6cm AO Peak GR.5.6mmHgLVOT Peak Ricky.99.9cm/s LVOT VTI 23.93cmAO Mean GR.3mmHg MELINDA (VMAX)3.17xy1UYW (VTI)3.45cm2 Mitral Valve MV E Ygvfchex63.3cm/sMV DECEL KZPQ138zu MV A Dnxqrblv97.3cm/sMV QXF76dn E/A Ratio2.2MV A Mwyvpxje965kc MVA (PHT)3.59cm2 TDI E/Lateral E'7.1E/Medial E'8.8 Pulmonary Valve PV Peak Qlhdpuhk14.8cm/sPV Peak Grad.2mmHg RVOT VTI22.4cm Tricuspid Valve TR P. Pllnipvk551wj/sRAP EQWWZBGM0kiEs TR Peak Gr.06bjPkSZKM34kwKd LEFT VENTRICLE The left ventricle is normal size. There is normal left ventricular wall thickness. Left ventricle sy stolic function is normal. The Ejection Fraction is 50-55%. There is normal LV segmental wall motion. The left ventricular diastolic function and filling is normal for age. There is no ventricular septa l defect visualized. RIGHT VENTRICLE The right ventricle is normal size. The right ventricular systolic function is normal. ATRIA The left atrium size is normal. The right atrium size is normal. The interatrial septum is intact wit h no evidence for an atrial septal defect or patent foramen ovale as noted on 2-D or Doppler imaging. AORTIC VALVE The aortic valve is normal in structure and function. The aortic valve is trileaflet. Doppler and Col or Flow revealed no significant aortic regurgitation. There is no significant aortic valvular stenosi s. MITRAL VALVE The mitral valve is normal in structure and function. There is no mitral valve stenosis. Doppler and Color Flow revealed trace mitral regurgitation. TRICUSPID VALVE The tricuspid valve is normal in structure and function. Doppler and Color Flow revealed trace to mil d tricuspid regurgitation. The PA pressure was estimated at 27 mmHg. There is no tricuspid valve sten osis. PULMONIC VALVE The pulmonic valve is not well visualized. Doppler and Color Flow revealed no pulmonic valvular regur gitation. There is no pulmonic valvular stenosis. GREAT VESSELS The aortic root is normal in size. Pulmonary veins not well visualized. The IVC is normal in size and collapses >50% with inspiration. PERICARDIAL EFFUSION There is no evidence of significant pericardial effusion. Critical Notification Critical Value: No <Conclusion> The left ventricle is normal size. Left ventricle systolic function is normal. The Ejection Fraction is 50-55%. There is normal left ventricular wall thickness. There is no significant aortic valvular stenosis. Doppler and Color Flow revealed no significant aortic regurgitation. Doppler and Color Flow revealed trace mitral regurgitation. Doppler and Color Flow revealed trace to mild tricuspid regurgitation. The PA pressure was estimated at 27 mmHg. There is no evidence of significant pericardial effusion.
[2016-11-08 19:54] VITALS: BP 136/79
[2016-11-08 22:57] VITALS: BP 140/77
[2016-11-09 04:00] VITALS: BP 133/81
[2016-11-09 05:18] LABS: BASO % 1 % (0-3); EOS % 4 % (0-3); HEMATOCRIT 40.5 % (39.0-53.0); HEMOGLOBIN 13.3 g/dL (13.0-17.5); LYMPH # 1.3 x10^3/uL (1.0-4.8); LYMPH % 45 % (24-48); MEAN CORPUSCULAR HEMOGLOBIN 30 pg (25-35); MEAN CORPUSCULAR HGB CONC 33 g/dL (31-37); MEAN CORPUSCULAR VOLUME 91 fL (79-100); MONO % 11 % (0-9); NEUT % 40 % (31-73); PLATELET COUNT 164 x10^3/uL (140-400); RED BLOOD COUNT 4.45 x10^6/uL (4.30-5.70); RED CELL DISTRIBUTION WIDTH 13.7 % (11.5-14.5); WHITE BLOOD COUNT 2.9 x10^3/uL (4.0-11.0)
[2016-11-09 05:36] LABS: CALCIUM 8.7 mg/dL (8.5-10.1); GFR 97.8; POTASSIUM 4.2 mmol/L (3.5-5.1)
[2016-11-09 05:48] LABS: CHOLESTEROL/HDL RATIO 4.4
[2016-11-09 06:35] VITALS: BP 137/76
[2016-11-09 06:38] VITALS: BP 126/82
[2016-11-09 06:42] VITALS: BP 128/86
[2016-11-09 07:00] VITALS: BP 120/75
[2016-11-09] MEDS ORDERED: REGADENOSON 0.4 MG/5 ML DISP.SYRIN. IV ONE (09:00)
[2016-11-09 11:44] VITALS: BP 121/73
[2016-11-09] MEDS: LISINOPRIL 5 MG TABLET. PO SCH (11:44)
[2016-11-09] MEDS: amLODIPine BESYLATE 2.5 MG TABLET PO SCH (11:44)
--- NOTE | 2016-11-09 12:28 | PDOC ---
CARDIO Progress Notes Date and Time Date of Service 11/09/16 Time of Evaluation 1140 Subjective Subjective: No Chest Pain, No shortness of breath, No Palpitations Comments: no acute events overnight; tele without signigicant bradycardia or pauses Vitals Vitals Vital Signs Date Time Temp Pulse Resp B/P (MAP) Pulse Ox O2 Delivery O2 Flow Rate FiO2 11/09/16 11:44 61 121/73 11/09/16 08:00 Room Air 11/09/16 07:00 97.9 18 99 97.9 Weight Weight [ ] Input and Output Intake and Output Intake and Output 11/09/16 07:00 Intake Total 2050 ml Balance 2050 ml Intake Oral 1050 ml IV Total 1000 ml # Voids 4 Laboratory Labs Laboratory Tests Test 11/08/16 17:30 11/08/16 23:30 11/09/16 04:40 Troponin I Quantitative 0.018 ng/mL (0.000-0.055) 0.017 ng/mL (0.000-0.055) White Blood Count 2.9 x10^3/uL (4.0-11.0) Red Blood Count 4.45 x10^6/uL (4.30-5.70) Hemoglobin 13.3 g/dL (13.0-17.5) Hematocrit 40.5 % (39.0-53.0) Mean Corpuscular Volume 91 fL (79-100) Mean Corpuscular Hemoglobin 30 pg (25-35) Mean Corpuscular Hemoglobin Concent 33 g/dL (31-37) Red Cell Distribution Width 13.7 % (11.5-14.5) Platelet Count 164 x10^3/uL (140-400) Neutrophils (%) (Auto) 40 % (31-73) Lymphocytes (%) (Auto) 45 % (24-48) Monocytes (%) (Auto) 11 % (0-9) Eosinophils (%) (Auto) 4 % (0-3) Basophils (%) (Auto) 1 % (0-3) Neutrophils # (Auto) 1.1 x10^3uL (1.8-7.7) Lymphocytes # (Auto) 1.3 x10^3/uL (1.0-4.8) Monocytes # (Auto) 0.3 x10^3/uL (0.0-1.1) Eosinophils # (Auto) 0.1 x10^3/uL (0.0-0.7) Basophils # (Auto) 0.0 x10^3/uL (0.0-0.2) Sodium Level 139 mmol/L (136-145) Potassium Level 4.2 mmol/L (3.5-5.1) Chloride Level 107 mmol/L (98-107) Carbon Dioxide Level 29 mmol/L (21-32) Anion Gap 3 (6-14) Blood Urea Nitrogen 12 mg/dL (8-26) Creatinine 1.0 mg/dL (0.7-1.3) Estimated GFR (Cockcroft-Gault) 97.8 Glucose Level 112 mg/dL (70-99) Calcium Level 8.7 mg/dL (8.5-10.1) Triglycerides Level 106 mg/dL (0-150) Cholesterol Level 173 mg/dL (0-200) LDL Cholesterol, Calculated 113 mg/dL (0-100) VLDL Cholesterol, Calculated 21 mg/dL (0-40) Non-HDL Cholesterol Calculated 134 mg/dL (0-129) HDL Cholesterol 39 mg/dL (40-60) Cholesterol/HDL Ratio 4.4 Physical Exam HEENT: Neck Supple W Full Motion Chest: Symmetric LUNGS: Clear to Auscultation Heart: S1S2, no murmurs, other (tele: SB) Abdomen: Soft N/T Extremities: 2+ Dorsalis Pedis, No Edema, No Calf Tenderness Neurology: oriented, follow commands Assessment Assessment 1. Syncope 2. Sinus bradycardia 3. Hyperlipidemia 4. Hypertension Recommendations Echo and MPI pending If WNL, may discharge from a CV standpoint Plan for outpatient event monitor with followup. ROSA TOVAR APRN Nov 09, 2016 12:28
--- NOTE | 2016-11-09 13:14 | RAD ---
APPROVED REPORT Test Type: Pharmacological Stress Nurse/Tech: ANKUR BAUTISTA Test Indications: SYNCOPE Cardiac History: NONE STATED, SEE EHR Medications: SEE EHR Medical History: SMOKER, SEE EHR Resting ECG: SR Resting Heart Rate: 53 bpm Resting Blood Pressure: 113/76mmHg Pretest Chest Pain: No chest pain Nurse/Tech Notes NO RESPIRATORY ISSUES, NO COMPLAINT OF CHEST PAIN. Consent: The procedure was explained to the patient in lay terms. Informed consent was witnessed. Jean-Claude eout was entered into Apprion. History and Stress Test performed by RT Marion (R) (N) Pharm. Details Pharmacologic stress testing was performed using 0.4mg per 5ml of regadenoson given intravenously ove r 7-10 seconds. Stress Symptoms NAUSEA, HEADACHE. POST EXERCISE Reason for Termination: Infusion complete Max HR: 92 bpm Max Blood Pressure: 110/75mmHg Chest Pain: No. Arrhythmia: No. ST Change: No. INTERPRETATION Stress EKG Conclusion: No evidence of stress induced EKG changes. Imaging Protocol IMAGE PROTOCOL: Rest Tc-99m/stress Tc-99m 1 day Rest: Stress: Viability: Radiopharm.Tc99m SitpowrwtKt66h Sestamibi Dose10.7mCi 33.1mCi Duration 15min. 10min. Img Date 11/09/2016 11/09/2016 Inj-Img Esai59vkb. 60min. Rest Admin Site:IV - Left WristAdministrator:RT Marion (R)(N) Stress Admin Site: IV - Left WristAdministrator: RT Marion (R)(N) STRESS DATA End Diast. Vol.153.0mlAv. Heart Rate56.0bpm End Syst. Vol.66.0mlCO Index BSA0.0L/min Myocardial Tqud189.0gEject. Lqytiytx87.0% Stress Rates Pk. Fill Rate2.53EDV/secLVtime Pk. Fill 138.96msec Pk. Empty Rate2.85ESV/secLVtime Pk. Wyrjy757.93msec 05/16 Pk. Fill1.53EDV/sec Stress Scores Regional WT2.00Summed WT10.00 Regional WM0.00Summed WM1.00 The rest and stress images show normal perfusion, normal contraction and thickening. LV Perf. Quant 17 Seg. SSS4.00 17 Seg. SRS4.00 17 Seg. SDS1.00 Stress Defect Extent (% LAD)0.00Rest Defect Extent (% LAD)0.00Rev. Defect Extent (% LAD)0.00 Stress Defect Extent (% LCX) 32.50Rest Defect Extent (% LCX)37.50Rev. Defect Extent (% LCX)0.00 Stress Defect Extent (% RCA)0.00Rest Defect Extent (% RCA)0.00Rev. Defect Extent (% RCA)0.00 Stress Defect Extent (% LESLIE)5.70Rest Defect Extent (% LESLIE)7.60Rev. Defect Extent (% LESLIE)0.00 Other Information Quality:Good Risk Assessment: Low Risk Conclusion 1. No evidence of stress induced EKG changes. 2. Normal perfusion at stress/rest. 3. Low risk study. EF 55%
--- NOTE | 2016-11-12 18:07 | PDOC3 ---
Discharge Summary* Date of Admission: Nov 08, 2016 Date of Discharge: Nov 09, 2016 Admitting Diagnosis Syncope Problems: Final Diagnosis Syncope CONSULTS Cardiology Brief Hospital Course Mr. Marie is a 45 year old man without PMH who presented to the ER after syncopal event at work. He describes lightheadedness and dyspnea right before the event and fell , with LOC (brief?). In the ER, he c/o elbow and knee pain, but no other sx. He was admitted for observation and further work up. 1. Syncope: echo and MPI were negative 2. Sinus bradycardia: will be evluated with O/P event monitor 3. Hyperlipidemia: no medications as of yet; will be addressed with completed cardiac work up 4. Hypertension: see 3. Disposition/Orders: D/C to Home CONDITION AT DISCHARGE: Improved Diet: Cardiac No Active Prescriptions or Reported Meds FOLLOW UP APPOINTMENT: Cardiology clinic this week for Holter monitor Time Spent TERRI MARTINS MD Nov 12, 2016 18:07
== END 2016-11-09 14:35 | disposition home or self-care (01) | DRG 312 ==
LOC: ER 09:34 → 2 NORTH 11:15
PROVIDERS: ADMIT Internal Medicine; ATTEND Internal Medicine
DX: R55 Syncope and collapse (principal); E78.5 Hyperlipidemia, unspecified; F17.210 Nicotine dependence, cigarettes, uncomplicated; I10 Essential (primary) hypertension; Z82.49 Family history of ischemic heart disease and other diseases of the circulatory system; Z83.3 Family history of diabetes mellitus; R94.31 Abnormal electrocardiogram [ECG] [EKG]; R00.1 Bradycardia, unspecified
CPT/HCPCS: 36415; 71010; 71275; 73080; 73564; 78452; 80048; 80061; 80076; 81001; 82553; 83690; 83735; 83880; 84443; 84484; 85027; 85379; 85610; 93005; 93017; 93306; 96361; 96374; 96375; 96376; 99406; A9500; G0379; G0481; J2270; J2785; J7030; Q9967; 99285-25

== ENCOUNTER 2021-05-05 19:28 | Emergency (ER) | payer BC, OTHER ==
[~2021-05-05] VITALS: Ht 188 cm; Wt 111.0 kg
--- NOTE | 2021-05-05 19:54 | PHYS DOC ---
Past Medical History Past Medical History: No Pertinent History Past Surgical History: Other Additional Past Surgical Histo: LEFT KNEE SX Smoking Status: Current Every Day Smoker Alcohol Use: Occasionally Drug Use: None General Adult EDM: Chief Complaint: SYNCOPE HPI: HPI: Patient is a 50 year old male brought in by EMS for reported syncope. He reports that he was sitting at his computer, playing video games most of the day, which she does on a routine basis. He reports that his entire body became numb and tingly. He reports that he felt lightheaded/dizzy when he got up. He reports that he then fell to the ground and lost consciousness for several minutes. His found him on the floor, reportedly unconscious but breathing, without apnea, grunting, no tonic-clonic movement, no snoring, no drooling or tongue biting. No reported incontinence. He woke up quickly. Upon EMS arrival, the patient was awake and alert. The patient denied any other premonitory symptoms. He denies chest pain, dyspnea, nausea, vomiting, diarrhea, urinary symptoms. He reports frequent palpitations, which she has had for years, he denies having an them actively, nor prior to reported syncopal episode no recent lower extremity swelling or pain. No recent travel or prolonged immobilization. No recent surgery or hospitalization. He reports that he has a mild headache, which she admittedly has almost daily. He admits that this headache is very mild. He does admit to having some recent stress, though he reports that this is not severe. He denies SI or HI. He also does admit to drinking alcohol daily, he reports that earlier today he drank 4-5 beers. Review of Systems: Review of Systems: Constitutional: Denies fever or chills. [] Eyes: Denies change in visual acuity, no vision loss. HENT: Denies nasal congestion or sore throat. [] Respiratory: Denies cough or shortness of breath. [] Cardiovascular: Denies chest pain or edema. He reports a previous history of palpitations, none today or currently. GI: Denies abdominal pain, nausea, vomiting, bloody stools or diarrhea. [] : Denies dysuria. [] Musculoskeletal: Denies back pain or joint pain. [] Integument: Denies rash. [] Neurologic: Mild headache, same as previous, no thunderclap headache. He reports dizziness/lightheadedness. Denies vertigo symptoms. Denies focal weakness. He reports diffuse tingling all over his entire body, and this is resolved at present. No focal sensory changes. Syncope reported. No seizure activity reported. Endocrine: Denies polyuria or polydipsia. [] Lymphatic: Denies swollen glands. [] Psychiatric: He admits to some recent stress, denies SI or HI. [] Heart Score: C/O Chest Pain: No Risk Factors: Risk Factors: DM, Current or recent (<one month) smoker, HTN, HLP, family history of CAD, obesity. Risk Scores: Score 0 - 3: 2.5% MACE over next 6 weeks - Discharge Home Score 4 - 6: 20.3% MACE over next 6 weeks - Admit for Clinical Observation Score 7 - 10: 72.7% MACE over next 6 weeks - Early Invasive Strategies Allergies: Allergies: Allergies Coded Allergies Type Severity Reaction Last Updated Verified No Known Drug Allergies 11/08/16 No Physical Exam: PE: Constitutional: Well developed, well nourished, no acute distress, non-toxic appearance. [] HENT: Normocephalic, atraumatic, oropharynx is patent and clear, no dental trauma, no oral trauma, mucous membranes are moist. TMs are clear bilaterally, no hemotympanum or otorrhea. Nares are patent without rhinorrhea or epistaxis. Eyes: PERRL, EOMI, conjunctiva normal, no discharge. No nystagmus. Neck: Normal range of motion, no tenderness, supple, no stridor. No meningismus. Trachea is midline. Cardiovascular:Heart rate regular rhythm, 2 radial and +2 posterior tibial pulses bilaterally. Lungs & Thorax: Bilateral breath sounds clear to auscultation [] Abdomen: Bowel sounds normal, soft, no tenderness, no masses, no pulsatile masses. [] Skin: Warm, dry, no erythema, no rash. [] Back: No tenderness, no CVA tenderness. [] Extremities: No tenderness, no cyanosis, no clubbing, ROM intact, no edema. This is stable, no limb deformity, no tenderness, no calf tenderness. Neurologic: He is awake, alert, oriented x3. Cranial nerves II through XII grossly intact. 5 out of 5 motor strength all 4 extremities. No limb ataxia, no pronator drift, no dysmetria. Speech is clear and fluent. Sensation is grossly intact. No visual deficit. Psychologic: Affect is flat. He is cooperative and pleasant. [] EKG: EKG: EKG is interpreted at 1935 Rhythm is sinus [place] 226 ms Rate is 68 bpm [place] is normal No STEMI Radiology/Procedures: Radiology/Procedures: IMAGING REPORT Signed PATIENT: ADRIEN DE LOS SANTOS ACCOUNT: [id number] : 1970 LOCATION: ER AGE: 50 SEX: M EXAM STATUS: REG ER ORD. PHYSICIAN: JOSEPHINE SOTO DO REASON: syncope PROCEDURE: PORTABLE CHEST 1V AP chest. HISTORY: Syncope AP view was taken of the chest. Lungs are clear. Heart is normal in size. There is no pleural effusion. IMPRESSION: 1. No acute chest disease. Electronically signed by: Judd Rosas MD (05/05/2021 9:00 PM) [facility] DICTATED and SIGNED BY: JUDD ROSAS MD DATE: 05/05/21 [id number] IMAGING REPORT Signed PATIENT: ADRIEN DE LOS SANTOS ACCOUNT: [id number] : 1970 LOCATION: ER AGE: 50 SEX: M EXAM STATUS: REG ER ORD. PHYSICIAN: JOSEPHINE SOTO DO REASON: syncope PROCEDURE: CT HEAD WO CONTRAST CT brain without contrast. HISTORY: Syncope CT brain was done without contrast. There is slight mucosal thickening in ethmoid sinuses. Remaining sinuses are clear. Mastoids are normally aerated. There is no intracranial hemorrhage or subdural hematoma. There is no mass effect or shift of the midline. Ventricles are normal in size. An acute CVA is not identified. IMPRESSION: 1. No intracranial hemorrhage or acute finding noted. PQRS Compliance Statement: One or more of the following individualized dose reduction techniques were utilized for this examination: 1. Automated exposure control 2. Adjustment of the mA and/or kV according to patient size 3. Use of iterative reconstruction technique Electronically signed by: Judd Rosas MD (05/05/2021 9:11 PM) [facility] DICTATED and SIGNED BY: JUDD ROSAS MD DATE: 05/05/[id number] 0 Course & Med Decision Making: Course & Med Decision Making Pertinent Labs and Imaging studies reviewed. (See chart for details) I have discussed the findings, differential diagnosis and plan of care with the patient. He is anxiously awaiting discharge home. He is asymptomatic, denies dizziness, palpitations, numbness or tingling. He continues to deny any chest pain symptoms. No indication of acute myocardial ischemia based on current ED work-up. He has a nonfocal, normal neurologic exam. Emergency department work- up and radiographic imaging is unremarkable for any acute life-threatening process. No indication for admission or further invasive exams at this time. I did give him outpatient information for cardiology services. Given syncope and history of palpitations, it would be important to rule out any serious life- threatening arrhythmia. He may require echocardiogram, Holter monitoring, or stress testing. I will defer this to cardiology services. He verbalizes understanding of instructions provided. Strict return precautions are given. Dragon Disclaimer: Dragon Disclaimer: This electronic medical record was generated, in whole or in part, using a voice recognition dictation system. Departure Departure Impression: Primary Impression: Syncope Disposition: 01 HOME / SELF CARE / HOMELESS Condition: STABLE Referrals: JAQUAN RUTLEDGE DO (PCP) CASSANDRA ROME MD, DONALD J MD PASNOORI, VENKAT R MD Patient Instructions: Syncope Additional Instructions: Please return to the ER for chest pain, shortness of breath, if you have more severe or sustained palpitations, vomiting, head injury, focal weakness or any other concerns. Please stay well-hydrated, drink plenty of clear fluids. Make sure you stand up slowly. Please follow-up with not only your primary care doctor but also with outpatient cardiology services, as there can be outpatient testing done to rule out other problems. Scripts No Active Prescriptions or Reported Meds JOSEPHINE SOTO DO May 05, 2021 19:54
[2021-05-05] MEDS ORDERED: ACETAMINOPHEN 500 MG TABLET PO ONE (20:30)
[2021-05-05] MEDS ORDERED: IV NORMAL SALINE 1000ML BAG 1,000 ML IV ONE (20:30)
[2021-05-05 20:42] LABS: BASO % 1 % (0-3); EOS # 0.2 x10^3/uL (0.0-0.7); EOS % 4 % (0-3); HEMATOCRIT 40.5 % (39.0-53.0); HEMOGLOBIN 13.6 g/dL (13.0-17.5); LYMPH # 1.6 x10^3/uL (1.0-4.8); LYMPH % 41 % (24-48); MEAN CORPUSCULAR HEMOGLOBIN 29 pg (25-35); MEAN CORPUSCULAR HGB CONC 34 g/dL (31-37); MEAN CORPUSCULAR VOLUME 85 fL (79-100); MONO # 0.4 x10^3/uL (0.0-1.1); MONO % 10 % (0-9); NEUT # 1.8 x10^3/uL (1.8-7.7); NEUT % 45 % (31-73); PLATELET COUNT 222 x10^3/uL (140-400); RED BLOOD COUNT 4.75 x10^6/uL (4.30-5.70); RED CELL DISTRIBUTION WIDTH 14.6 % (11.5-14.5)
[2021-05-05 20:53] LABS: CALCIUM 8.6 mg/dL (8.5-10.1); CREATININE 0.9 mg/dL (0.7-1.3); GFR 108.1
[2021-05-05 20:58] LABS: ALBUMIN 3.7 g/dL (3.4-5.0); ALBUMIN/GLOBULIN RATIO 0.9 (1.0-1.7); MAGNESIUM 2.2 mg/dL (1.8-2.4); TOTAL BILIRUBIN 0.3 mg/dL (0.2-1.0); TOTAL PROTEIN 7.6 g/dL (6.4-8.2)
--- NOTE | 2021-05-05 21:03 | RAD ---
AP chest. HISTORY: Syncope AP view was taken of the chest. Lungs are clear. Heart is normal in size. There is no pleural effusio n. IMPRESSION: 1. No acute chest disease. Electronically signed by: Judd Rosas MD (05/05/2021 9:00 PM) [facility]
--- NOTE | 2021-05-05 21:14 | RAD ---
CT brain without contrast. HISTORY: Syncope CT brain was done without contrast. There is slight mucosal thickening in ethmoid sinuses. Remaining sinuses are clear. Mastoids are normally aerated. There is no intracranial hemorrhage or subdural hem atoma. There is no mass effect or shift of the midline. Ventricles are normal in size. An acute CVA i s not identified. IMPRESSION: 1. No intracranial hemorrhage or acute finding noted. RS Compliance Statement: One or more of the following individualized dose reduction techniques were utilized for this examinat ion: 1. Automated exposure control 2. Adjustment of the mA and/or kV according to patient size 3. Use of iterative reconstruction technique Electronically signed by: Judd Rosas MD (05/05/2021 9:11 PM) [facility]
[2021-05-05 22:58] VITALS: BP 136/74
--- NOTE | 2021-05-11 19:16 | EKG ---
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
== END 2021-05-05 23:00 | disposition home or self-care (01) ==
LOC: ER 19:28
DX: R55 Syncope and collapse (principal); R42 Dizziness and giddiness; R51.9 Headache, unspecified; F17.200 Nicotine dependence, unspecified, uncomplicated
CPT/HCPCS: 36415; 70450; 71045; 80053; 82962; 83735; 84484; 85025; 96360; 99285; G0480; J7030